=== PATIENT | male | born 1990 | race Caucasian/White ===

== ENCOUNTER 2019-02-14 08:19 | Emergency (ER) | payer OTHER ==
[~2019-02-14] VITALS: Ht 170.2 cm; Wt 124.7 kg
[2019-02-14 08:22] VITALS: BP_SYST 155
--- NOTE | 2019-02-14 08:22 | NUR ---
Placed in room 7 . Placed on monitoring analyst, blood pressure machine and pulse oximeter. To gown for exam. Side rails up. Assumed care.
--- NOTE | 2019-02-14 08:33 | NUR ---
Patient arrived via [facility] ambulance, [facility], and able to transfer to [facility]. Patient states while driving to work today, he had sudden onset of tunnel vision, anxiety, mild SOB, and states "weird feeling in head like he has a headache, without pain." Patient states no history of anxiety, only HTN which he takes lisinopril for. Per patient no headaches associated with hypertension. He had another episode just like this yesterday, and they continue in "waves." Patient states no nausea, vomiting, diarrhea, cough, cold, ear pain, or changes in medications. Patient states only recent stress was financial stress, and hes been working more hours. Patient calm and cooperative. Will continue to follow up and monitor.
--- NOTE | 2019-02-14 08:45 | NUR ---
ER at bedside examining patient.
[2019-02-14] MEDS ORDERED: LORazepam 2 MG/ML VIAL IVP ONE (09:15)
--- NOTE | 2019-02-14 10:10 | NUR ---
Patient has been given Ativan IVP as ordered by MD. When patient was up at bedside giving urine specimen, patients HR increased to 130BPM. Patient encouraged to rest, HR resumed 85-95BPM.
[2019-02-14 10:30] LABS: BASOPHILS # (AUTO) 0.1 K/uL (0.0-0.2); BASOPHILS % (AUTO) 0.5 % (0.0-2.0); EOSINOPHILS # (AUTO) 0.2 K/uL (0.0-0.4); HEMATOCRIT 46.8 % (36-54); HEMOGLOBIN 15.8 g/dL (14.0-18.0); LYMPHOCYTES # (AUTO) 1.4 K/uL (1.0-5.5); LYMPHOCYTES % (AUTO) 12.3 % (20.5-51.5); MEAN CORPUSCULAR HEMOGLOBIN 27 pg (27-31); MEAN CORPUSCULAR HGB CONC 34 % (32-36); MEAN CORPUSCULAR VOLUME 80 fL (79.0-98.0); MONOCYTES # (AUTO) 0.7 K/uL (0.0-1.0); NEUTROPHILS # (AUTO) 9.3 K/uL (1.8-7.7); NEUTROPHILS % (AUTO) 79.2 % (40.0-70.0); PLATELET COUNT (AUTO) 247 K/uL (130-430); RED BLOOD CELL COUNT(AUTO) 5.83 MIL/uL (4.2-6.2); RED CELL DISTRIBUTION WIDTH 14.3 % (9.0-15.0); WHITE BLOOD COUNT (AUTO) 11.7 K/uL (4.8-10.8)
[2019-02-14 10:32] LABS: BILIRUBIN,URINE NEGATIVE (NEGATIVE); BLOOD, URINE NEGATIVE (NEGATIVE); CLARITY/URINE CLEAR (CLEAR); COLOR,URINE YELLOW (YELLOW); GLUCOSE,URINE NEGATIVE (NEGATIVE); KETONES,URINE NEGATIVE (NEGATIVE); LEUKOCYTE ESTERASE ,URINE NEGATIVE (NEGATIVE); NITRITE, URINE NEGATIVE (NEGATIVE); PROTEIN URINE 1+ (NEGATIVE)
[2019-02-14 10:34] LABS: BACTERIA,URINE RARE /HPF (None Seen); RBC,URINE 0-3 /HPF (0-3); WBC,URINE 0-3 /HPF (0-3)
[2019-02-14 10:49] LABS: ANION GAP 8 (5-15); CALCIUM 9.4 mg/dL (8.4-11.0); CHLORIDE 101 mmol/L (98-107); CREATININE 0.86 mg/dL (0.55-1.30); GLUCOSE 110 mg/dL (70-99); POTASSIUM 3.6 mmol/L (3.5-5.1); SODIUM SERUM 136 mmol/L (136-145); UREA NITROGEN, BLOOD 15 mg/dL (8-21)
[2019-02-14 10:51] LABS: INR 1.1 (0.80-1.20); PROTHROMBIN TIME 10.6 SECS (9.5-12.5)
[2019-02-14 11:00] LABS: ALANINE AMINOTRANSFERASE 79 U/L (12-78); ALBUMIN 3.9 g/dL (3.4-4.8); ASPARTATE AMINOTRANSFERASE 29 U/L (10-37); FREE T4 (FREE THYROXINE) 1.1 ng/dl (0.8-1.5); GFR AFRICAN AMERICAN 135 mL/min (>90); TOTAL BILIRUBIN 0.5 mg/dL (0.0-1.0)
[2019-02-14 11:02] LABS: ALCOHOL, BLOOD < 3 mg/dL (<10)
--- NOTE | 2019-02-14 11:19 | NUR ---
Patient resting comfortably, states no other episodes since being here. Patient aware we are waiting for labs to come back, and then we will be looking at a possible discharge if he would like to begin calling for a ride. Will continue to follow up and monitor.
[2019-02-14 12:46] VITALS: BP_SYST 145
--- NOTE | 2019-02-14 12:46 | NUR ---
Patient given written and verbal discharge instructions and verbalizes understanding. ER MD Loredo discussed with patient the results and treatment provided. Patient in stable condition. ID arm band removed. IV catheter removed intact and dressing applied, no active bleeding. Rx of Xanax given. Patient educated on pain management and to follow up with PMD. Pain Scale 0. Opportunity for questions provided and answered. Medication side effect fact sheet provided.
[2019-02-14 14:04] LABS: BARBITURATE, URINE NEGATIVE (NEG <=200); BENZODIAZEPINE, URINE NEGATIVE (NEG <=150); CANNABINOID, URINE POSITIVE (NEG <=50); COCAINE, URINE NEGATIVE (NEG <=150); METHAMPHETAMINES SCREEN,URINE NEGATIVE (NEG <=500); OPIATE, URINE NEGATIVE (NEG <=100); PHENCYCLIDINE SCREEN,URINE NEGATIVE (NEG <=25); UR TRICYCLIC ANTIDEPRESSANTS NEGATIVE (NEG <=300); URINE AMPHETAMINE NEGATIVE (NEG <=500); URINE METHADONE NEGATIVE (NEG <=200); URINE OXYCODONE SCREEN NEGATIVE (NEG <=100); URINE PROPOXYPHENE SCREEN NEGATIVE (NEG <=300)
== END 2019-02-14 12:46 | disposition home or self-care (01) ==
LOC: SED 08:19
DX: F41.9 Anxiety disorder, unspecified (principal); I10 Essential (primary) hypertension; F12.90 Cannabis use, unspecified, uncomplicated
CPT/HCPCS: 36415; 70450; 71045; 80053; 80307; 81000; 83605; 83880; 84439; 84484; 85025; 85610; 87040; 93005; 96374; 99284; G0482; J2060